=== PATIENT | male | born 1985 | race Caucasian/White ===

== ENCOUNTER 2017-04-26 14:25 | Emergency (ER) | payer MEDICARE, MEDICAID ==
[~2017-04-26 14:25] MED LIST: BACDS PO; SERT50TA PO
== END 2017-04-26 15:20 | disposition left against medical advice (07) ==
LOC: ER 14:25
DX: Z53.21 Procedure and treatment not carried out due to patient leaving prior to being seen by health care provider (principal)

== ENCOUNTER 2017-08-14 10:06 | Emergency (ER) | payer MEDICARE, MEDICAID ==
[~2017-08-14] VITALS: Ht 180.3 cm; Wt 71.0 kg
[~2017-08-14 10:06] MED LIST changes: -BACDS PO; +OMEP40CA37 PO
[2017-08-14 10:20] VITALS: BP 116/78
== END 2017-08-14 11:05 | disposition home or self-care (01) ==
LOC: ER 10:06
DX: Z48.00 Encounter for change or removal of nonsurgical wound dressing (principal); G89.29 Other chronic pain; F12.10 Cannabis abuse, uncomplicated; F15.10 Other stimulant abuse, uncomplicated; Z56.0 Unemployment, unspecified; Z88.6 Allergy status to analgesic agent
CPT/HCPCS: 99281

== ENCOUNTER 2018-06-22 02:19 | Inpatient (IN) | payer MEDICARE, MEDICAID | END 2018-07-05 21:25 | disposition left against medical advice (07) | LOC: ER 02:19 → ORTHO 4S 06-25 12:10 → SUR 3N 16:41 | PROC: 0KN90ZZ Release Right Lower Arm and Wrist Muscle, Open Approach (ICD-10-PCS; principal; 2018-06-22 12:22) | PROC: 01N50ZZ Release Median Nerve, Open Approach (ICD-10-PCS; 2018-06-22 12:22) | PROC: 0KN90ZZ Release Right Lower Arm and Wrist Muscle, Open Approach (ICD-10-PCS; 2018-06-22 12:22) | PROC: 0X980ZZ Drainage of Right Upper Arm, Open Approach (ICD-10-PCS; 2018-06-22 12:22) | DX: A41.9 Sepsis, unspecified organism (principal); E43 Unspecified severe protein-calorie malnutrition; N17.9 Acute kidney failure, unspecified; G92 Toxic encephalopathy; M60.031 Infective myositis, right forearm; M62.82 Rhabdomyolysis; M60.009 Infective myositis, unspecified site; E86.0 Dehydration; T79.A11A Traumatic compartment syndrome of right upper extremity, initial encounter; I82.611 Acute embolism and thrombosis of superficial veins of right upper extremity; E87.1 Hypo-osmolality and hyponatremia; T43.621A Poisoning by amphetamines, accidental (unintentional), initial encounter; L03.113 Cellulitis of right upper limb; F15.10 Other stimulant abuse, uncomplicated; F31.9 Bipolar disorder, unspecified; F28 Other psychotic disorder not due to a substance or known physiological condition ==

== ENCOUNTER 2018-07-15 10:20 | Outpatient (CLI) | payer MEDICARE, MEDICAID ==
[~2018-07-15 10:20] MED LIST changes: +HYDR-4353 PO; +NO HOME MEDS; -OMEP40CA37 PO; -SERT50TA PO
[2018-07-15] MEDS ORDERED: ZYV600I IV (11:20)
--- NOTE | 2018-07-15 13:30 | NUR ---
Patient ambulated independently from [facility] and was admitted to outpatient wound care for physician visit with Vinny Foote MD. Dressing removed, wound cleansed. New patient assessment completed by Lucho Jackson RN. 1125 - Dr. Foote at bedside accompanied by RN. Wound assessed by MD, orders written. Plan of care discussed with patient. Dressings placed per MD orders. Pt instructed that they should not be disconnected from suction for more than 2 hours at a time. If they are not able to get the suction back on they need to remove the dressing and take all of the foam out of the wound, place hydrogel gauze on/in the wound, and change the dressing daily until someone can replace the dressing. Pt instructed to call the Wound Center or their Home Health Agency immediately if they notice a change in the color or amount of the fluid in the canister, their wound looks more red than usual or has a foul smell, the skin around their wound looks reddened or irritated, the dressing feels or appears loose, they experience pain or the alarm will not turn off. Pt instructed to call 911 or go to the ED if their canister fills rapidly with blood. Patient instructed on the signs and symptoms of infection and to call the Wound Center if any occur or to go to the ED if we are closed: Increased pain in wound Increase in drainage from the wound Redness in the skin surrounding the wound Bleeding from the wound Temperature of 101 or greater Patient instructed that the weight of their body puts a large amount of pressure on their wounds. This pressure keeps the new tissue from growing and inhibits new blood vessels from forming. Explained that, if they continue to bear weight on a body part that has a wound, the time it takes to heal the wound increases, the wound may get worse or the wound may not heal at all. Appointment with Dr. Jean Baptiste set for 07/20/18 @ 12:40 by RN and information given to patient and his father verbally and in writing. Home health with [facility] arranged by RN and information given to patient and his father in writing and verbally. Patient and his father verbalized understanding of all discharge instructions and plan of care and patient ambulated independently out to [facility] accompanied by his father and is in stable condition with no sign or symptom of distress at time of discharge.
== END 2018-07-15 13:15 | disposition home or self-care (01) ==
LOC: WOUND CARE 10:20
PROVIDERS: ATTEND Surgery
DX: T81.89XA Other complications of procedures, not elsewhere classified, initial encounter (principal); L98.492 Non-pressure chronic ulcer of skin of other sites with fat layer exposed; G89.29 Other chronic pain; E43 Unspecified severe protein-calorie malnutrition; F15.10 Other stimulant abuse, uncomplicated; F12.90 Cannabis use, unspecified, uncomplicated; F32.9 Major depressive disorder, single episode, unspecified; F17.210 Nicotine dependence, cigarettes, uncomplicated; Z68.20 Body mass index [BMI] 20.0-20.9, adult; Z87.442 Personal history of urinary calculi; Z79.899 Other long term (current) drug therapy; Y83.8 Other surgical procedures as the cause of abnormal reaction of the patient, or of later complication, without mention of misadventure at the time of the procedure
CPT/HCPCS: 97606; A6222; A6223; A6021; A6446

== ENCOUNTER 2018-07-20 09:01 | Outpatient (CLI) | payer MEDICARE, MEDICAID ==
[~2018-07-20 09:01] MED LIST changes: -HYDR-4353 PO; +ZYV600I IV
[2018-07-20] MEDS ORDERED: LIDOcaine/PRILOcaine 5gm cream TP ONE (11:09)
--- NOTE | 2018-07-20 13:30 | NUR ---
Patient ambulated independently from [facility] and was admitted to outpatient wound care for physician visit with Vinny Foote MD. NPWT in [facility] with audible leak, vac turned off and dressing removed, wound cleansed and Emla cream applied per order. Patient assessed for changes in conditions, medications and medical history. 1200 - Dr. Foote at bedside accompanied by RN. Wound assessed by MD, orders written. Plan of care discussed with patient. Dressings placed per MD orders. Patient is to go to Dr. Jean Baptiste at 12:40 today for suture removal; patient is instructed to return to the clinic after his appointment with dressings (foam and canisters) for NPWT placement. Patient returned to clinic as instructed but states he "forgot" to go home and get his supplies. Hydrogel, kerlex, Varun placed and patient is instructed to return to clinic on Friday with all supplies for NPWT replacement. Patient no longer has home health due to excessive calls to them over the weekend for vac seal leaks. Patient instructed on the signs and symptoms of infection and to call the Wound Center if any occur or to go to the ED if we are closed: Increased pain in wound Increase in drainage from the wound Redness in the skin surrounding the wound Bleeding from the wound Temperature of 101 or greater Patient instructed that the weight of their body puts a large amount of pressure on their wounds. This pressure keeps the new tissue from growing and inhibits new blood vessels from forming. Explained that, if they continue to bear weight on a body part that has a wound, the time it takes to heal the wound increases, the wound may get worse or the wound may not heal at all. Patient verbalized understanding of all discharge instructions and plan of care and ambulated independently out to [facility] in stable condition with no sign or symptom of distress at time of discharge.
[2018-07-20] MEDS ORDERED: LINE600T36 PO (15:50)
== END 2018-07-20 14:00 | disposition home or self-care (01) ==
LOC: WOUND CARE 09:01 → EDSTATUS 10:00 → WOUND CARE 14:00
PROVIDERS: ATTEND Surgery
DX: T81.89XD Other complications of procedures, not elsewhere classified, subsequent encounter (principal); L98.492 Non-pressure chronic ulcer of skin of other sites with fat layer exposed; G89.29 Other chronic pain; E43 Unspecified severe protein-calorie malnutrition; F15.10 Other stimulant abuse, uncomplicated; F12.90 Cannabis use, unspecified, uncomplicated; F31.30 Bipolar disorder, current episode depressed, mild or moderate severity, unspecified; F17.210 Nicotine dependence, cigarettes, uncomplicated; Z68.20 Body mass index [BMI] 20.0-20.9, adult; Z87.442 Personal history of urinary calculi; Z79.899 Other long term (current) drug therapy; Y83.8 Other surgical procedures as the cause of abnormal reaction of the patient, or of later complication, without mention of misadventure at the time of the procedure
CPT/HCPCS: 97605; G0463; A6243; A6446

== ENCOUNTER 2018-07-22 10:55 | Outpatient (CLI) | payer MEDICARE, MEDICAID ==
[~2018-07-22 10:55] MED LIST changes: +LINE600T36 PO; -NO HOME MEDS; -ZYV600I IV
--- NOTE | 2018-07-22 13:30 | NUR ---
Patient ambulated independently from [facility] and was admitted to outpatient wound care for physician visit with Vinny Foote MD. Dressing removed, wound cleansed. Patient assessed for changes in conditions, medications and medical history. 1150 - Dr. Foote at bedside accompanied by RN. Wound assessed by MD. Plan of care discussed with patient. Dressings placed per MD orders by Edu Estrada and Jane Ramos RNs. Pt instructed that they should not be disconnected from suction for more than 2 hours at a time. If they are not able to get the suction back on they need to remove the dressing and take all of the foam out of the wound, place hydrogel gauze on/in the wound, and change the dressing daily until someone can replace the dressing. Pt instructed to call the Wound Center or their Home Health Agency immediately if they notice a change in the color or amount of the fluid in the canister, their wound looks more red than usual or has a foul smell, the skin around their wound looks reddened or irritated, the dressing feels or appears loose, they experience pain or the alarm will not turn off. Pt instructed to call 911 or go to the ED if their canister fills rapidly with blood. Patient instructed on the signs and symptoms of infection and to call the Wound Center if any occur or to go to the ED if we are closed: Increased pain in wound Increase in drainage from the wound Redness in the skin surrounding the wound Bleeding from the wound Temperature of 101 or greater Patient instructed that the weight of their body puts a large amount of pressure on their wounds. This pressure keeps the new tissue from growing and inhibits new blood vessels from forming. Explained that, if they continue to bear weight on a body part that has a wound, the time it takes to heal the wound increases, the wound may get worse or the wound may not heal at all. Patient verbalized understanding of all discharge instructions and plan of care and ambulated independently out to [facility] accompanied by his father in stable condition with no sign or symptom of distress at time of discharge; next appointment Friday at 10:00, father and son both understand importance of being prompt and present.
== END 2018-07-22 13:10 | disposition home or self-care (01) ==
LOC: WOUND CARE 10:55
PROVIDERS: ATTEND Surgery
DX: T81.89XD Other complications of procedures, not elsewhere classified, subsequent encounter (principal); L98.492 Non-pressure chronic ulcer of skin of other sites with fat layer exposed; G89.29 Other chronic pain; E43 Unspecified severe protein-calorie malnutrition; F15.10 Other stimulant abuse, uncomplicated; F12.90 Cannabis use, unspecified, uncomplicated; F32.9 Major depressive disorder, single episode, unspecified; F17.210 Nicotine dependence, cigarettes, uncomplicated; Z68.20 Body mass index [BMI] 20.0-20.9, adult; Z87.442 Personal history of urinary calculi; Z79.899 Other long term (current) drug therapy; Y83.8 Other surgical procedures as the cause of abnormal reaction of the patient, or of later complication, without mention of misadventure at the time of the procedure
CPT/HCPCS: 97606; A4414; A4456

== ENCOUNTER 2018-07-24 09:50 | Outpatient (CLI) | payer MEDICARE, MEDICAID ==
--- NOTE | 2018-07-24 15:07 | NUR ---
Patient ambulated independently from [facility] and was admitted to outpatient wound care for physician visit with Vinny Foote MD. Dressings and wound vac removed. Wound cleansed and patient assessed for changes in conditions, medications and medical history. Dr. Foote at bedside accompanied by RN. Wound assessed and no debridement was done. Plan of care discussed with patient. Dressings and wound vac placed per MD orders. Patient instructed on the signs and symptoms of infection and to call the Wound Center if any occur or to go to the ED if we are closed: Increased pain in wound Increase in drainage from the wound Redness in the skin surrounding the wound Bleeding from the wound Temperature of 101 or greater Pt instructed that they should not be disconnected from suction for more than 2 hours at a time. If they are not able to get the suction back on they need to remove the dressing and take all of the foam out of the wound, place hydrogel gauze on/in the wound, and change the dressing daily until someone can replace the dressing. Pt instructed to call the Wound Center or their Home Health Agency immediately if they notice a change in the color or amount of the fluid in the canister, their wound looks more red than usual or has a foul smell, the skin around their wound looks reddened or irritated, the dressing feels or appears loose, they experience pain or the alarm will not turn off. Pt instructed to call 911 or go to the ED if their canister fills rapidly with blood. Patient instructed that the weight of their body puts a large amount of pressure on their wounds. This pressure keeps the new tissue from growing and inhibits new blood vessels from forming. Explained that, if they continue to bear weight on a body part that has a wound, the time it takes to heal the wound increases, the wound may get worse or the wound may not heal at all. Patient verbalized understanding of all discharge instructions and plan of care and ambulated independently out to [facility] in stable condition with no sign or symptom of distress at time of discharge. Addendum: 07/24/18 at 1509 by Lorna Jackson RN Amended: Links added.
== END 2018-07-24 13:26 | disposition home or self-care (01) ==
LOC: WOUND CARE 09:50 → EDSTATUS 10:00 → WOUND CARE 13:26
PROVIDERS: ATTEND Surgery
DX: T81.89XD Other complications of procedures, not elsewhere classified, subsequent encounter (principal); L98.492 Non-pressure chronic ulcer of skin of other sites with fat layer exposed; G89.29 Other chronic pain; E43 Unspecified severe protein-calorie malnutrition; F15.10 Other stimulant abuse, uncomplicated; F12.90 Cannabis use, unspecified, uncomplicated; F32.9 Major depressive disorder, single episode, unspecified; F17.210 Nicotine dependence, cigarettes, uncomplicated; Z68.20 Body mass index [BMI] 20.0-20.9, adult; Z87.442 Personal history of urinary calculi; Z79.899 Other long term (current) drug therapy; Y83.8 Other surgical procedures as the cause of abnormal reaction of the patient, or of later complication, without mention of misadventure at the time of the procedure
CPT/HCPCS: 97606; A6223; A4414

== ENCOUNTER 2018-07-31 10:05 | Day surgery (SDC) | payer MEDICARE, MEDICAID ==
--- NOTE | 2018-07-31 13:00 | NUR ---
Patient ambulated independently from [facility] and was admitted to outpatient wound care for physician visit with Vinny Foote MD. Dressing removed, wound cleansed and lidocaine applied per order. Patient assessed for changes in conditions, medications and medical history. 1125 - Dr. Foote at bedside accompanied by RN. Wound assessed, time out performed by MD/RN. Wound debrided as detailed in the physician progress/procedure note. Plan of care discussed with patient. Dressings placed per MD orders. Pt instructed that they should not be disconnected from suction for more than 2 hours at a time. If they are not able to get the suction back on they need to remove the dressing and take all of the foam out of the wound, place hydrogel gauze on/in the wound, and change the dressing daily until someone can replace the dressing. Pt instructed to call the Wound Center or their Home Health Agency immediately if they notice a change in the color or amount of the fluid in the canister, their wound looks more red than usual or has a foul smell, the skin around their wound looks reddened or irritated, the dressing feels or appears loose, they experience pain or the alarm will not turn off. Pt instructed to call 911 or go to the ED if their canister fills rapidly with blood. Patient instructed on the signs and symptoms of infection and to call the Wound Center if any occur or to go to the ED if we are closed: Increased pain in wound Increase in drainage from the wound Redness in the skin surrounding the wound Bleeding from the wound Temperature of 101 or greater Patient instructed that the weight of their body puts a large amount of pressure on their wounds. This pressure keeps the new tissue from growing and inhibits new blood vessels from forming. Explained that, if they continue to bear weight on a body part that has a wound, the time it takes to heal the wound increases, the wound may get worse or the wound may not heal at all. Patient verbalized understanding of all discharge instructions and plan of care and ambulated independently accompanied by his dad out to [facility] in stable condition with no sign or symptom of distress at time of discharge.
== END 2018-07-31 12:58 | disposition home or self-care (01) ==
LOC: WOUND CARE 10:05
PROVIDERS: ATTEND Surgery
DX: T81.89XD Other complications of procedures, not elsewhere classified, subsequent encounter (principal); L98.492 Non-pressure chronic ulcer of skin of other sites with fat layer exposed; G89.29 Other chronic pain; E43 Unspecified severe protein-calorie malnutrition; F15.10 Other stimulant abuse, uncomplicated; F12.90 Cannabis use, unspecified, uncomplicated; F32.9 Major depressive disorder, single episode, unspecified; F17.210 Nicotine dependence, cigarettes, uncomplicated; Z68.20 Body mass index [BMI] 20.0-20.9, adult; Z87.442 Personal history of urinary calculi; Z79.899 Other long term (current) drug therapy; Y83.8 Other surgical procedures as the cause of abnormal reaction of the patient, or of later complication, without mention of misadventure at the time of the procedure
CPT/HCPCS: 97597; 97605; A6223; A4456

== ENCOUNTER 2018-10-10 22:45 | Emergency (ER) | payer MEDICARE, MEDICAID ==
--- NOTE | 2018-10-10 23:03 | NUR ---
LBT NOTE : Pt originally brought in by D for Medical Clearance,. However, D Officer, after arriving, informed staff that he will not be requiring a medical clearance, appologized for any inconvenience he caused. Dr. Garcia informed.
== END 2018-10-10 23:29 | disposition left against medical advice (07) ==
LOC: ER 22:46
DX: Z02.89 Encounter for other administrative examinations (principal); Z53.21 Procedure and treatment not carried out due to patient leaving prior to being seen by health care provider

== ENCOUNTER 2022-04-10 12:30 | Emergency (ER) | payer MEDICARE, MEDICAID ==
[~2022-04-10] VITALS: Ht 180.3 cm; Wt 70.0 kg
[2022-04-10 12:41] VITALS: BP 117/78
[2022-04-10] MEDS ORDERED: amox tr/potassium clavulanate 875/125mg TAB PO ONE (14:10)
--- NOTE | 2022-04-10 14:16 | NUR ---
PT STATED " I WANT TO GO OUTSIDE TO SMOKE A CIGARETTE" PT ADVISED TO STAY AND RECEIVE TX AND TOLD HE WAS SHOULD STAY IN ROOM. PT STATED " I ACTUALLY HAVE AN APPOINTMENT I NEED TO GO TO, I DONT NEED THE MEDICATIONS IM GOING TO GO BYE".
[2022-04-10] MEDS ORDERED: AMOX-117 PO (14:19)
== END 2022-04-10 14:27 | disposition home or self-care (01) ==
LOC: ER 12:30
DX: H60.92 Unspecified otitis externa, left ear (principal); F15.20 Other stimulant dependence, uncomplicated; Z88.6 Allergy status to analgesic agent; Z56.0 Unemployment, unspecified
CPT/HCPCS: 99283

== ENCOUNTER 2024-08-09 13:11 | Emergency (ER) | payer MEDICAID, MEDICARE ==
[~2024-08-09] VITALS: Ht 180.3 cm; Wt 81.8 kg
[2024-08-09 13:18] VITALS: BP 130/90; PULSE 90; RESP 15; TEMP 98.9; O2SAT 99
[2024-08-09] MEDS ORDERED: AMOX-117 PO (13:48)
--- NOTE | 2024-08-09 13:48 | Physician Documentation ---
History of Present Illness ~ Chief Complaint: Bite-animal Stated Complaint: DOG BITE Time Seen by MD: 13:24 Primary Medical Doctor: None HPI He is 38-year-old male presents to the ED with a complaint of a bite on his left hand. He states it is minor.; denies any severe pain denies any pain with range of motion of his left hand Day of Onset: August 09, 2024 Tetanus within 5 years?: No Medication Reconciliation Allergies: Coded Allergies: ibuprofen (Verified Adverse Reaction, Unknown, upset stomach, 04/10/22) Scheduled Amox Tr/Potassium Clavulanate (Augmentin 875-125 Tablet), 1 TAB PO Q12H Past Medical History Past Medical History: Cellulitis, MRSA Abscess Past Surgical History: orthopedic surgeries, other Other Past Surgical History: Fasciotomy Alcohol Use: None Drug Use: methamphetamine Lives with: Father, Family Lives In: Home Occupation: unemployed, disabled Physical Exam Vital Signs: Temperature: 98.9, Heart Rate: 90, Respiratory Rate: 15, BP: 130/90, Pulse Oximetry: 99, Weight: 81.820 Oxygen Flow Rate: 0 Physical Exam General: Alert, no apparent distress. HEENT: PERRL, EOMI, no injection, moist mucous membranes. Extremities: Normal range of motion, no deformity. Three minor punctures on left hand posterior Skin: Normal color, warm and dry. No edema, no ecchymosis. Progress Results/Orders Results/Orders Vital Signs 08/09/24 13:18 Temp 98.9 Pulse 90 Resp 15 B/P (MAP) 130/90 Pulse Ox 99 O2 Flow Rate 0 Medical Decision Making Findings Did not see any reason to get further imaging of the patient has his wound was minor. We will place him on Augmentin to cover him for the dog bite. May follow up in the outpatient setting for further evaluation Differential Dx:Considerations: Include: Abrasion, Allergic reaction, Anaphylaxis, Cellulitis, Contusion, Fracture, Hematoma, Insect envenomation, Laceration, Neurovascular injury, Punture wound, Retained foreign body, Urticaria, Other Departure Disposition: 01 HOME / SELF CARE / HOMELESS Impression: Primary Impression: Dog bite Discharge Instructions: Animal Bite, Adult Referrals: NO PRIMARY CARE PROVIDER (PCP) Prescriptions Amox Tr/Potassium Clavulanate (Augmentin 875-125 Tablet) 1 Each Tablet 1 TAB PO Q12H for 10 Days, #20 TAB Prov: JESSE,ALEJANDRO H FRUIT PITTER 08/09/24 Education Educated: Patient Educated regarding: diagnosis Signature Scribe Signature: h Attestation: The note accurately reflects work and decisions made by me.Alejandro Molina - LONG 08/09/24 18:16 ALEJANDRO MOLINA FRUIT PITTER August 09, 2024 13:48
== END 2024-08-09 14:26 | disposition home or self-care (01) ==
LOC: ER 13:12
DX: S61.432A Puncture wound without foreign body of left hand, initial encounter (principal); F15.90 Other stimulant use, unspecified, uncomplicated; Z88.6 Allergy status to analgesic agent; Z56.0 Unemployment, unspecified; Z98.890 Other specified postprocedural states; W54.0XXA Bitten by dog, initial encounter; Y93.89 Activity, other specified; Y92.89 Other specified places as the place of occurrence of the external cause; Y99.8 Other external cause status
CPT/HCPCS: 99283; A6258